=== PATIENT | female | born 1980 | race Two or more races ===

== ENCOUNTER 2023-06-21 14:18 | Outpatient (CLI) | payer MEDICAID, SELFPAY | END 2023-06-21 14:19 | disposition home or self-care (01) | PROVIDERS: PCP Family Medicine; Visit Provider Family Medicine | DX: E78.00 Pure hypercholesterolemia, unspecified (principal); E03.9 Hypothyroidism, unspecified; Z13.21 Encounter for screening for nutritional disorder | CPT/HCPCS: 80048; 80061; 82306; 84439; 84443 ==